=== PATIENT | male | born 1990 | race Caucasian/White ===

== ENCOUNTER 2021-09-09 11:23 | Emergency (ER) | payer OTHER, SELFPAY ==
--- NOTE | ~2021-09-09 | US_ITS ---
EXAMINATION: US scrotum doppler DATE: 09/09/2021 12:18 INDICATION: Left testicular pain post meniscectomy on antibiotics for epididymitis. TECHNIQUE: Testicular sonogram utilizing grayscale and Doppler COMPARISON: None. FINDINGS: The right testis measures 4.3 x 2.1 x 2.9 cm. The left testis measures 3.5 x 1.9 x 2.5 cm. Symmetric normal grayscale appearance to both testes. There is normal vascular flow to both testes. The right e pididymis is normal with normal vascular flow. The left epididymis mildly thickened and with asymmetr ic mildly increased vascular on color Doppler relative to the right epididymis consistent with left e pididymitis. Small bilateral simple appearing anechoic hydroceles. No varicocele. IMPRESSION: 1. Left epididymitis with edematous-appearing left epididymis with asymmetric mildly increased vascu lar flow on color Doppler. 2. Relatively symmetric simple appearing small bilateral hydroceles. Reviewed, dictated and finalized at location A. [employer] IMPRESSION: 1. Left epididymitis with edematous-appearing left epididymis with asymmetric mildly increased vascular flow on color Doppler. 2. Relatively symmetric simple appearing small bilateral hydroceles.
[2021-09-09 11:27] VITALS: BP 106/53; PULSE 62; RESP 16; TEMP 36.4; O2SAT 95
--- NOTE | 2021-09-09 12:36 | ED.MALEGU ---
HPI - Male Genitourinary General Chief complaint: Urogenital-Male Stated complaint: urology male Time Seen by Provider: 09/09/21 12:01 Source: RN notes reviewed History of Present Illness HPI Narrative: Patient presents emergency department from home for testicular pain. Patient states he began to have left testicular pain yesterday states the testicle is tender to palpation he states that he began to have right testicular pain approximately 10 days ago and at that time he gone to the urologist had an ultrasound done and diagnosed with epididymitis and was placed on 3 weeks of Bactrim and has been on it now for approximately 9 days he states his right testicle is feeling better now is a testicle that is initially hurting with no pain in his left testicle but now he is having left testicle pain he does state he has a history of vasectomy by Dr. Donaldson in May of this year he notes that he had a low-grade fever at home today he denies any abdominal pain nausea vomiting or any other symptoms Related Data Home Medications Medication Instructions Recorded Confirmed sulfamethoxazole-trimethoprim tablet 09/09/21 Allergies Allergy/AdvReac Type Severity Reaction Status Date / Time Contrast Media Allergy Severe Swelling Uncoded 09/09/21 11:31 Review of Systems Review of Systems: Gen.: Subjective fever ENT: Denies congestion Respiratory: Denies shortness of breath or cough CV: Denies chest pain or palpitations GI: Denies abdominal pain nausea, emesis or diarrhea see HPI Musculoskeletal: Denies back pain or muscle pain Neuro: Denies head Skin: Denies rash Except as documented, all other systems reviewed and negative [facility] Past Medical History Medical History (Updated 09/09/21 @ 13:33 by Dustin Zuniga DO) Patient denies significant medical history Surgical History Surgical History H/O vasectomy Social History Social History Smoking status: Former smoker Smoking end date: 10/15/11 Alcohol intake: current Exam Narrative: APPEARANCE: No acute distress, nontoxic, resting in bed EYES: EOMI HEENT: Normocephalic, atraumatic, OMM RESPIRATORY: No respiratory distress ABDOMINAL: Soft, nontender, nondistended, no rebound or guarding : Normal external exam no skin lesions seen no scrotal swelling or erythema no tenderness palpation of the right testicle the left testicle is tender to palpation over posterior aspect MUSCULOSKELETAl: Moves all extremities. No clubbing, cyanosis or edema. NEURO: Awake and alert. Following commands, speech normal, no focal deficits SKIN:: Warm, dry. No rashes lesions or abrasions PSYCHIATRIC: Normal affect/mood, Course Course Emergency Course: Discussed with Dr. Alfredo presentation work-up at this time recommends patient discontinue Bactrim and start on Cipro with UA sent for culture Discussed with patient results of workup and diagnosis. Discussed need for follow-up with primary care, proper use of medication, and reasons to return to the emergency department. Patient understands and agrees to current treatment plan Vital Signs Vital signs: Vital Signs Temperature 97.6 F 09/09/21 11:27 Pulse Rate 62 09/09/21 11:27 Respiratory Rate 16 09/09/21 11:27 Blood Pressure 106/53 L 09/09/21 11:27 Pulse Oximetry 95 09/09/21 11:27 Temperature 97.6 F 09/09/21 11:27 Pulse Rate 62 09/09/21 11:27 Respiratory Rate 16 09/09/21 11:27 Blood Pressure 106/53 L 09/09/21 11:27 Pulse Oximetry 95 09/09/21 11:27 MDM - Male Genitourinary Lab Data Result diagrams: 09/09/21 12:37 09/09/21 12:37 Labs: Lab Results 09/09/21 09/09/21 09/09/21 Range/Units 12:37 12:37 12:37 WBC 7.0 (4.5-10.0) K/mm3 RBC 4.47 L (4.6-6.20) M/mm3 Hgb 14.0 (14.0-18.0) g/dL Hct 42.3 (42.0-52.0) % MCV 94.6 (80-100) fl [facility]
[2021-09-09 12:46] LABS: Basophils Percent Auto 0.4 % (0.2-1.2); Eosinophils Absolute Auto 0.1 K/mm3 (0-0.3); Eosinophils Percent Auto 1.6 % (0-4.4); Hematocrit 42.3 % (42.0-52.0); Immature Granulocyte Absolute 0.02 K/mm3 (0.00-0.031); Immature Granulocyte Percent A 0.3 % (0-0.5); Lymphocytes Percent Auto 4.3 % (18.3-44.2); Mean Corpuscular HGB Conc 33.1 g/dl (32-36); Mean Corpuscular Hemoglobin 31.3 pg (26-34); Mean Corpuscular Volume 94.6 fl (80-100); Mean Platelet Volume 10.5 fl (7.4-10.4); Monocytes Absolute Auto 0.5 K/mm3 (0.1-0.6); Monocytes Percent Auto 7.7 % (2.6-8.5); Neutrophils Percent Auto 85.7 % (45.5-73.1); Platelet Count Result 168 k/mm3 (150-375); Red Blood Count 4.47 M/mm3 (4.6-6.20); Red Cell Distribution Width 11.9 % (11.5-14.5)
[2021-09-09 13:13] LABS: Alanine Aminotransferase 20 U/L (4-50); Albumin Level 4.4 g/dL (3.5-5.1); Alkaline Phosphatase 54 U/L (38-126); Anion Gap 8 mmol/L (8-16); Aspartate Amino Transferase 25 U/L (17-59); Bilirubin,Total 0.2 mg/dL (0.2-1.3); Blood Urea Nitrogen 11 mg/dL (9-20); Calcium 9.4 mg/dL (8.4-10.2); Carbon Dioxide 26 mmol/L (22-30); Chloride 102 mmol/L (98-107); Estimated CRCL calculation 90 ml/min; Estimated Glomerular Filt Rate > 60; Glucose 112 mg/dL (65-110); Potassium 4.1 mmol/L (3.4-5.0); Sodium 136 mmol/L (137-145)
[2021-09-09 13:14] LABS: Lactic Acid Reflex 1.2 mmol/L (0.7-2.1)
[2021-09-09] MEDS: CIPROFLOXACIN 500 MG TAB PO (13:32)
[2021-09-09 14:15] LABS: Add Urine Microscopic? YES; Appearance Urine Cloudy (Clear); Bilirubin Urine Negative (Negative); Blood Urine Negative (Negative); Color Urine Yellow (Yellow); Glucose Urine UA Negative (Negative); Ketones Urine Negative (Negative); Leukocyte Esterase Ur Negative LEU/UL (Negative); Nitrate Urine Negative (Negative); Protein Urine 1+ mg/dL (Negative); Specific Grav Ur 1.031 (1.001-1.035); Urobilinogen Urine Negative mg/dL (<2.0)
[2021-09-09 14:19] LABS: Mucus Urine Heavy /lpf; Squamous Epithelial Cell Urine Rare /hpf (Few); WBC Urine 0-3 /hpf
== END 2021-09-09 13:50 | disposition home or self-care (01) ==
PROVIDERS: Emergency Medicine; Emergency Provider Emergency Medicine
DX: N45.1 Epididymitis (principal); Z87.891 Personal history of nicotine dependence
CPT/HCPCS: 36415; 76870; 80053; 81001; 83605; 85025; 87086; 93976; 96365; 99284; A9270; J0131

== ENCOUNTER 2024-01-08 16:35 | Outpatient (CLI) | payer BC, SELFPAY ==
--- NOTE | ~2024-01-08 | XR_ITS ---
XR shoulder RT min 2V 01/08/2024 16:46 INDICATION: Right shoulder pain PROCEDURE: 4 views right shoulder COMPARISON: No prior studies for comparison. FINDINGS: Fracture, dislocation or subluxation is not identified. The soft tissues appear within norm al limits. No foreign bodies are identified. IMPRESSION: 1: NO ACUTE BONE OR JOINT ABNORMALITY IDENTIFIED. Reviewed, dictated and finalized at location B.
== END 2024-01-08 16:36 | disposition home or self-care (01) ==
LOC: ANHBWCIMG 16:37
PROVIDERS: PCP Nurse Practitioner Adult Health; Visit Provider Nurse Practitioner Adult Health
DX: Z13.9 Encounter for screening, unspecified (principal); M25.511 Pain in right shoulder
CPT/HCPCS: 73030

== ENCOUNTER 2024-04-13 13:49 | Emergency (ER) | payer BC, SELFPAY ==
[2024-04-13 14:03] VITALS: BP 125/77; PULSE 81; RESP 16; TEMP 37.2
--- NOTE | 2024-04-13 14:24 | ED.SKABFB ---
HPI - Skin/Abscess/Foreign Bdy General Chief complaint: Skin/Abscess/Foreign Body Stated complaint: HIVES Time Seen by Provider: 04/13/24 14:16 Source: patient and RN notes reviewed Mode of arrival: ambulatory Limitations: no limitations History of Present Illness HPI narrative: Patient presents today with a 2 day history of pruritic rash that started on the left hand and has spread to the right axilla and bilateral buttocks. Patient is unsure of the cause. No new products in the home, plant or animal exposures, food or medication exposures. Denies shortness of breath, facial or mouth swelling. He has tried topical Benadryl, Claritin D with some very mild relief. Related Data Allergies Allergy/AdvReac Type Severity Reaction Status Date / Time Contrast Media Allergy Severe Swelling Uncoded 01/08/24 16:09 Review of Systems Review of Systems: CONSTITUTIONAL: Denies body aches, fever, chills, or sweats. EYES: Denies visual changes, redness, or discharge. ENT: Denies rhinorrhea, congestion, sore throat, or otalgia. CARDIOVASCULAR: Denies chest pain, palpitations, or edema. RESPIRATORY: Denies cough or dyspnea. GASTROINTESTINAL: Denies abdominal pain, nausea, vomiting, or diarrhea. GENITOURINARY: Denies dysuria or hematuria. SKIN: Pruritic rash. MUSCULOSKELETAL: Denies back pain, joint pain, or myalgia. NEUROLOGIC: Denies headache, numbness, tingling, or weakness. PSYCH: Denies depression or anxiety. [facility] Past Medical History Medical History Patient denies significant medical history Surgical History Surgical History H/O vasectomy Family History Family History Father History of ETOH abuse Social History Social History Smoking status: Former smoker Smoking end date: 10/15/11 Alcohol intake: current Alcohol use details: beer socially Substance use: never Lack of Transportation: No Lack of Food: Never True Current Housing: I Have Housing Concerned About Future Housing: No Difficulty Paying Gas/Electric Bills: No Difficulty Paying for Meds: No Currently Unemployed: No Education: High School Diploma/GED Difficulty w/ Childcare or Family Care: No Living arrangements: with family 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 Please see nursing chart for further information. There is no relevant family history pertinent to the presenting complaint Exam Narrative: GENERAL: Well-appearing, well-nourished, and in no acute distress. HEAD: Normocephalic, atraumatic. EYES: EOMI. No redness or drainage. Conjunctivae normal. ENT: Mucous membranes pink and moist. No facial swelling noted. NECK: Normal AROM. Supple. No lymphadenopathy. CHEST: No respiratory distress. EXTREMITIES: Normal range of motion. No edema. SKIN: Warm, dry. Capillary refill normal. Normal skin turgor. Large patch of erythematous maculopapular rash to the right axilla area and rashes covering the bilateral buttocks. NEURO: No focal deficits. Alert and oriented x3. Gait steady. PSYCH: Normal affect. No signs of depression or anxiety. Course Course Level of Care: Express Care Visit Vital Signs Vital signs: Vital Signs Temperature 98.9 F 04/13/24 14:03 Pulse Rate 81 04/13/24 14:03 Respiratory Rate 16 04/13/24 14:03 Blood Pressure 125/77 04/13/24 14:03 Temperature 98.9 F 04/13/24 14:03 Pulse Rate 81 04/13/24 14:03 Respiratory Rate 16 04/13/24 14:03 Blood Pressure 125/77 04/13/
== END 2024-04-13 14:33 | disposition home or self-care (01) ==
PROVIDERS: Emergency Provider Nurse Practitioner; PCP Nurse Practitioner Adult Health
DX: L25.9 Unspecified contact dermatitis, unspecified cause (principal); Z87.891 Personal history of nicotine dependence
CPT/HCPCS: 99213; G0463